=== PATIENT | female | born 1975 ===

== ENCOUNTER → 2017-04-24 14:13 | Outpatient (CLI) | payer OTHER | END | disposition home or self-care (01) | LOC: LAB 14:13 | DX: R53.1 Weakness (principal); R50.9 Fever, unspecified; R07.9 Chest pain, unspecified; J11.1 Influenza due to unidentified influenza virus with other respiratory manifestations ==

== ENCOUNTER 2017-04-24 14:50 | Outpatient (CLI) | payer OTHER | END 2017-04-24 17:16 | disposition home or self-care (01) | LOC: RAD 14:50 | DX: R50.9 Fever, unspecified (principal); R07.9 Chest pain, unspecified ==

== ENCOUNTER → 2017-04-24 | Outpatient (CLI) | payer OTHER ==
[~2017-04-24] VITALS: Ht 152.4 cm; Wt 56.7 kg
[~2017-04-24] MED LIST: INTESTINEX680 MG PO; ZANTAC150 MG PO
== END | disposition home or self-care (01) ==
LOC: PPHC 10:44
DX: R53.1 Weakness (principal); J11.1 Influenza due to unidentified influenza virus with other respiratory manifestations; R07.89 Other chest pain

== ENCOUNTER 2017-11-17 09:00 | Emergency (ER) | payer OTHER ==
[~2017-11-17] VITALS: Ht 157.5 cm; Wt 58.1 kg
== END 2017-11-17 09:18 | disposition home or self-care (01) ==
LOC: ER 09:00
DX: S61.042A Puncture wound with foreign body of left thumb without damage to nail, initial encounter (principal); W46.0XXA Contact with hypodermic needle, initial encounter; Y93.89 Activity, other specified; Y92.69 Other specified industrial and construction area as the place of occurrence of the external cause; Y99.8 Other external cause status

== ENCOUNTER 2018-04-26 07:54 | Outpatient (CLI) | payer OTHER | END 2018-04-26 08:10 | disposition home or self-care (01) | LOC: SONOGRAMA 07:54 | DX: Z12.31 Encounter for screening mammogram for malignant neoplasm of breast (principal); R10.2 Pelvic and perineal pain; N63.10 Unspecified lump in the right breast, unspecified quadrant; N63.20 Unspecified lump in the left breast, unspecified quadrant; D25.9 Leiomyoma of uterus, unspecified ==

== ENCOUNTER 2018-05-08 09:20 | Outpatient (CLI) | payer OTHER | END 2018-05-08 15:59 | disposition home or self-care (01) | LOC: LAB 09:20 | DX: Z00.00 Encounter for general adult medical examination without abnormal findings (principal); R53.1 Weakness ==